=== PATIENT | male | born 1995 | race Caucasian/White ===

== ENCOUNTER 2019-05-14 20:44 | Emergency (ER) | payer OTHER ==
[~2019-05-14] VITALS: Ht 167.6 cm; Wt 79.5 kg
[2019-05-14] MEDS ORDERED: TETanus/Pertussis (Acell)/Diphther VAC/PF (Tdap-Adult) 0.5ml syringe IM ONE (21:25)
[2019-05-14 21:54] VITALS: BP 136/92
== END 2019-05-14 21:58 | disposition home or self-care (01) ==
LOC: ER 20:45
DX: S61.215A Laceration without foreign body of left ring finger without damage to nail, initial encounter (principal); Z88.0 Allergy status to penicillin; Z87.01 Personal history of pneumonia (recurrent); Z90.89 Acquired absence of other organs; W45.8XXA Other foreign body or object entering through skin, initial encounter; Y93.89 Activity, other specified; Y92.89 Other specified places as the place of occurrence of the external cause; Y99.0 Civilian activity done for income or pay
CPT/HCPCS: 12001; 90471; 99283

== ENCOUNTER 2022-12-21 07:27 | Emergency (ER) | payer MEDICAID, OTHER ==
[~2022-12-21] VITALS: Ht 172.7 cm; Wt 89.0 kg
[2022-12-21] MEDS ORDERED: amox tr/potassium clavulanate 875/125mg TAB PO ONE (09:30)
[2022-12-21] MEDS ORDERED: naproxen 500mg tablet PO ONE (09:30)
[2022-12-21] MEDS ORDERED: HYDROcodone/acetaminophen 10/325mg tab PO ONE (09:30)
[2022-12-21] MEDS ORDERED: AMOX-117 PO (09:41)
[2022-12-21] MEDS ORDERED: NAPR-56 PO (09:41)
[2022-12-21] MEDS ORDERED: CLIN-97 PO (09:43)
== END 2022-12-21 10:04 | disposition home or self-care (01) ==
LOC: ER 07:28
DX: K08.89 Other specified disorders of teeth and supporting structures (principal); Z88.0 Allergy status to penicillin; Z79.899 Other long term (current) drug therapy
CPT/HCPCS: 99284